=== PATIENT | female | born 1980 | race Two or more races ===

== ENCOUNTER 2021-06-04 08:44 | Emergency (ER) | payer MEDICARE, OTHER ==
[~2021-06-04] VITALS: Ht 170.2 cm; Wt 81.6 kg
[2021-06-04 09:16] VITALS: BP 126/75
[2021-06-04] MEDS ORDERED: MEPERIDINE HCL (50 MG/ML) 1 ML VIAL IM ONE (10:00)
[2021-06-04] MEDS ORDERED: ONDANSETRON ODT 4 MG TAB PO ONE (10:00)
[2021-06-04] MEDS ORDERED: methylPREDNISolone SOD SUCC 125 MG/2 ML VL IM ONE (10:00)
== END 2021-06-04 10:24 | disposition home or self-care (01) ==
LOC: ER 08:44
DX: M54.5 Low back pain (principal); M62.838 Other muscle spasm; X50.1XXA Overexertion from prolonged static or awkward postures, initial encounter; Y93.89 Activity, other specified; Y92.89 Other specified places as the place of occurrence of the external cause; Y99.8 Other external cause status
CPT/HCPCS: 96372; 99284; J2175; J2930; Q0162